=== PATIENT | male | born 1940 | race Caucasian/White ===

== ENCOUNTER 2018-01-16 11:01 | Day surgery (SDC) | payer OTHER ==
[~2018-01-16] VITALS: Ht 165.1 cm; Wt 91.4 kg
[~2018-01-16 11:01] MED LIST: ALBU90OI; ALBU90OI INH; ALBU90OI6 INH; ALLO100 PO; AMLO5 PO; ASPI81EC PO; BENA20; BENA20 PO; BUDE6HFA PO; CENTRUM SILVER1 EAC2; CHOL10002 PO; CITA20 PO; CLARITIN10 MG; CODGUAEL PO; COLCRYS0.6 MG PO; Cinnamon500 MG; DULERA INH; FLUO60T; FLUTICASONE P15.8 ML; FURO20 PO; GLIP5 PO; GUAI120S1 PO; HYDACE5 PO; Ipratr-Albuterol3 ML INH; LEVO750 PO; LORA10 PO; MULVITMINF PO; NASACORT10.8 ML; NIFE60ER PO; PANT40 PO; Prednisone20 MG PO; SALM50IP IH; SIMV10 PO; UBID100 PO; Zithromax250 MG PO
[2018-01-16] MEDS ORDERED: ALBU3IS INH (12:18)
== END 2018-01-16 13:58 | disposition home or self-care (01) ==
LOC: ORSCSDS 11:01
PROVIDERS: Internal Medicine Gastroenterology
PROC: 0DBM8ZX Excision of Descending Colon, Via Natural or Artificial Opening Endoscopic, Diagnostic (ICD-10-PCS; principal; 2018-01-16 12:45)
PROC: 0DBN8ZX Excision of Sigmoid Colon, Via Natural or Artificial Opening Endoscopic, Diagnostic (ICD-10-PCS; principal; 2018-01-16 12:45)
PROC: 0DB58ZX Excision of Esophagus, Via Natural or Artificial Opening Endoscopic, Diagnostic (ICD-10-PCS; principal; 2018-01-16 12:45)
DX: K22.70 Barrett's esophagus without dysplasia (principal); D12.4 Benign neoplasm of descending colon; D12.5 Benign neoplasm of sigmoid colon; K57.30 Diverticulosis of large intestine without perforation or abscess without bleeding; K44.9 Diaphragmatic hernia without obstruction or gangrene; F17.210 Nicotine dependence, cigarettes, uncomplicated; I10 Essential (primary) hypertension; J44.9 Chronic obstructive pulmonary disease, unspecified; E11.9 Type 2 diabetes mellitus without complications; Z99.81 Dependence on supplemental oxygen; Z86.010 Personal history of colon polyps; E66.9 Obesity, unspecified; Z68.36 Body mass index [BMI] 36.0-36.9, adult; Z79.82 Long term (current) use of aspirin; Z79.899 Other long term (current) drug therapy
CPT/HCPCS: 82947; 88305; J7120

== ENCOUNTER → 2019-05-23 | Outpatient (CLI) | payer MEDICARE ==
[~2019-05-23] MED LIST changes: +ALBU3IS INH
[2019-05-23 14:10] LABS: BASOPHILS ABSOLUTE AUTO 0.04 K/mm3 (0.00-0.23); BASOPHILS PERCENT AUTO 1 % (0-2); EOSINOPHILS ABSOLUTE AUTO 0.08 K/mm3 (0.00-0.68); EOSINOPHILS PERCENT AUTO 1 % (0-6); Hematocrit 45.3 % (37.0-53.0); Hemoglobin 15.3 g/dL (13.5-17.5); IMMATURE GRAN ABSOLUTE AUTO 0.02 K/mm3 (0.00-0.10); IMMATURE GRAN PERCENT AUTO 0 % (0-1); LYMPHOCYTES ABSOLUTE AUTO 2.16 K/mm3 (0.84-5.20); LYMPHOCYTES PERCENT AUTO 36 % (21-46); MONOCYTES ABSOLUTE AUTO 0.61 K/mm3 (0.16-1.47); MONOCYTES PERCENT AUTO 10 % (4-13); Mean Corpuscular HGB 31.2 pg (26.0-34.0); Mean Corpuscular HGB Conc 33.8 g/dL (31.5-36.5); Mean Corpuscular Volume 92 fL (80-100); Mean Platelet Volume 10.4 fL (9.1-12.4); NEUTROPHILS ABSOLUTE AUTO 3.17 K/mm3 (1.96-9.15); NEUTROPHILS PERCENT AUTO 52 % (41-73); Platelet Count 218 K/mm3 (150-400); RDW Coefficient Variation 14.1 % (11.7-14.2); Red Blood Cell Count 4.91 M/mm3 (4.30-5.90); White Blood Cell Count 6.08 K/mm3 (4.00-11.30)
[2019-05-23 14:16] LABS: Bun/Creatinine Ratio 15.2 (12.0-20.0); Calcium, Blood 8.6 mg/dL (8.5-10.1); Creatinine, Blood 1.71 mg/dL (0.60-1.20); Potassium, Blood 3.7 mmol/L (3.5-5.5)
== END | disposition home or self-care (01) ==
LOC: LAB EV 14:04 → LAB SHORT 14:04
PROVIDERS: Physician Assistant Surgical
DX: J18.0 Bronchopneumonia, unspecified organism (principal)
CPT/HCPCS: 80048; 85025

== ENCOUNTER → 2019-05-24 | Outpatient (CLI) | payer MEDICARE ==
[2019-05-24 12:26] LABS: BASOPHILS ABSOLUTE AUTO 0.04 K/mm3 (0.00-0.23); BASOPHILS PERCENT AUTO 1 % (0-2); EOSINOPHILS ABSOLUTE AUTO 0.11 K/mm3 (0.00-0.68); EOSINOPHILS PERCENT AUTO 2 % (0-6); Hematocrit 43.4 % (37.0-53.0); Hemoglobin 14.5 g/dL (13.5-17.5); IMMATURE GRAN ABSOLUTE AUTO 0.02 K/mm3 (0.00-0.10); IMMATURE GRAN PERCENT AUTO 0 % (0-1); LYMPHOCYTES ABSOLUTE AUTO 1.79 K/mm3 (0.84-5.20); LYMPHOCYTES PERCENT AUTO 26 % (21-46); MONOCYTES PERCENT AUTO 7 % (4-13); Mean Corpuscular HGB 31.1 pg (26.0-34.0); Mean Corpuscular HGB Conc 33.4 g/dL (31.5-36.5); Mean Corpuscular Volume 93 fL (80-100); Mean Platelet Volume 10.4 fL (9.1-12.4); NEUTROPHILS ABSOLUTE AUTO 4.43 K/mm3 (1.96-9.15); NEUTROPHILS PERCENT AUTO 64 % (41-73); Platelet Count 214 K/mm3 (150-400); RDW Standard Deviation 47.8 fL (35.1-46.3); Red Blood Cell Count 4.66 M/mm3 (4.30-5.90); White Blood Cell Count 6.89 K/mm3 (4.00-11.30)
[2019-05-24 12:30] LABS: Bun/Creatinine Ratio 14.1 (12.0-20.0); Calcium, Blood 8.6 mg/dL (8.5-10.1); Creatinine, Blood 1.77 mg/dL (0.60-1.20); Potassium, Blood 3.7 mmol/L (3.5-5.5)
== END | disposition home or self-care (01) ==
LOC: LAB SHORT 12:20 → LAB EV 12:20
PROVIDERS: Physician Assistant Surgical
DX: J18.0 Bronchopneumonia, unspecified organism (principal)
CPT/HCPCS: 80048; 85025

== ENCOUNTER → 2021-04-27 | Outpatient (CLI) | payer OTHER ==
[~2021-04-27] MED LIST changes: +ASPI81CH PO; +ATOR20 PO; +BUDE6HFA INH; +CENTRUM SILVER1 EAC2 PO; +CHLO25B PO; +COLCRYS0.6 M1 PO; +COMBIVENT RESPIM4 GM NEB; +COQ-10100 MG PO; +ENOX40I SC; +FURO40 PO; +INSULANPEN SC; +METO25ER PO; +MOME.1TO TOP; +OXYC5 PO; +PANTOPRAZOLE SO40 M1 PO; +PROM25 PO; +SULTRIDS PO; +VITAMIN D350 MCG PO
== END | disposition home or self-care (01) ==
LOC: LAB SHORT 14:40
DX: C44.629 Squamous cell carcinoma of skin of left upper limb, including shoulder (principal)
CPT/HCPCS: 88305

== ENCOUNTER → 2021-05-19 | Outpatient (CLI) | payer OTHER | LOC: LAB 11:21 → LAB SHORT 11:21 | DX: C44.622 Squamous cell carcinoma of skin of right upper limb, including shoulder (principal); L57.0 Actinic keratosis; Z88.8 Allergy status to other drugs, medicaments and biological substances | CPT/HCPCS: 88305 ==

== ENCOUNTER → 2021-07-19 | Outpatient (CLI) | payer OTHER ==
[2021-07-20 10:32] LABS: Stool Occult Bld Immuno 1 Negative (NEGATIVE)
== END | disposition home or self-care (01) ==
LOC: LAB SHORT 09:00
PROVIDERS: Family Medicine
DX: Z12.11 Encounter for screening for malignant neoplasm of colon (principal)
CPT/HCPCS: G0328

== ENCOUNTER → 2021-11-14 | Outpatient (CLI) | payer OTHER | END | disposition home or self-care (01) | LOC: PLD 07:54 → LAB 07:54 → LAB SHORT 07:54 | DX: L57.0 Actinic keratosis (principal) | CPT/HCPCS: 88305 ==

== ENCOUNTER → 2022-01-03 | Outpatient (CLI) | payer OTHER | END | disposition home or self-care (01) | LOC: LAB SHORT 08:00 → PLD 08:00 | DX: B35.3 Tinea pedis (principal) | CPT/HCPCS: 88305; 88312 ==

== ENCOUNTER → 2023-03-13 | Outpatient (CLI) | payer OTHER | LOC: LAB SHORT 07:55 → LAB 07:55 → PLD 07:55 | DX: D04.62 Carcinoma in situ of skin of left upper limb, including shoulder (principal) | CPT/HCPCS: 88305 ==

== ENCOUNTER 2024-05-03 15:12 | Observation (INO) | payer MEDICARE ==
[~2024-05-03] VITALS: Ht 160 cm; Wt 83.5 kg
[~2024-05-03 15:12] MED LIST changes: +ONDA4ODT MM; +OSEL75CA PO; +PRED20 PO
[2024-05-03 15:42] LABS: BASOPHILS ABSOLUTE AUTO 0.07 K/mm3 (0.00-0.23); BASOPHILS PERCENT AUTO 1 % (0-2); EOSINOPHILS ABSOLUTE AUTO 0.25 K/mm3 (0.00-0.68); EOSINOPHILS PERCENT AUTO 2 % (0-6); Hematocrit 47.2 % (37.0-53.0); Hemoglobin 15.7 g/dL (13.5-17.5); IMMATURE GRAN ABSOLUTE AUTO 0.04 K/mm3 (0.00-0.10); IMMATURE GRAN PERCENT AUTO 0 % (0-1); LYMPHOCYTES ABSOLUTE AUTO 2.75 K/mm3 (0.84-5.20); LYMPHOCYTES PERCENT AUTO 26 % (21-46); MONOCYTES ABSOLUTE AUTO 0.78 K/mm3 (0.16-1.47); MONOCYTES PERCENT AUTO 8 % (4-13); Mean Corpuscular HGB 31.3 pg (26.0-34.0); Mean Corpuscular HGB Conc 33.3 g/dL (31.5-36.5); Mean Corpuscular Volume 94 fL (80-100); Mean Platelet Volume 10.2 fL (9.1-12.4); NEUTROPHILS ABSOLUTE AUTO 6.52 K/mm3 (1.96-9.15); NEUTROPHILS PERCENT AUTO 63 % (41-73); Platelet Count 226 K/mm3 (150-400); RDW Coefficient Variation 13.5 % (11.7-14.2); RDW Standard Deviation 46.4 fL (35.1-46.3); Red Blood Cell Count 5.01 M/mm3 (4.30-5.90); White Blood Cell Count 10.41 K/mm3 (4.00-11.30)
[2024-05-03 15:58] LABS: Albumin, Blood 3.6 g/dL (3.4-5.0); Bilirubin, Total 0.6 mg/dL (0.1-1.0); Bun/Creatinine Ratio 16.6 (12.0-20.0); Calcium, Blood 8.9 mg/dL (8.5-10.1); Creatinine, Blood 1.87 mg/dL (0.60-1.20); Globulin, Blood 3.6 g/dL (2.2-4.0); Potassium, Blood 4.8 mmol/L (3.5-5.5); Total Protein, Blood 7.2 g/dL (6.4-8.2)
[2024-05-03] MEDS ORDERED: Aspirin 325 MG Tab PO ONE (16:25)
[2024-05-03] MEDS ORDERED: Ondansetron HCl 2 MG / ML 2ML Vial IV PRN (17:50)
[2024-05-03] MEDS ORDERED: Acetaminophen 325 MG TABLET PO PRN (17:50)
[2024-05-03] MEDS ORDERED: FLU VACC TS2024-25(6MOS UP)/PF 45 MCG/0.5 ML SYRINGE IM ONE (17:50)
[2024-05-03] MEDS ORDERED: OxyCODONE HCL 5 MG TAB PO PRN (17:50)
[2024-05-03] MEDS ORDERED: Ondansetron 4 MG TAB PO PRN (17:50)
[2024-05-03] MEDS ORDERED: Temazepam 15 MG Cap PO PRN (17:50)
[2024-05-03] MEDS ORDERED: Ipratropium/Albuterol SulF 2.5-0.5MG/3 ML Amp INH PRN (17:55)
[2024-05-03] MEDS ORDERED: LOSA25 PO (20:01)
[2024-05-03] MEDS ORDERED: FARXIGA10 MG PO (20:06)
[2024-05-03] MEDS ORDERED: INSULANPEN SC (20:07)
[2024-05-03 20:45] VITALS: BP 167/75
[2024-05-03] MEDS ORDERED: Mometasone/Formoterol MDI 200/5 mcg 13 GM INH SCH (20:50)
[2024-05-03] MEDS ORDERED: Albuterol HFA200 ACT/6.7 GM INH INH PRN (20:50)
[2024-05-03] MEDS ORDERED: Insulin Human Lispro 100 Units/ML 3ML Syringe SC SCH (21:00)
[2024-05-03] MEDS ORDERED: Insulin Glargine-Yfgn 100 Unit/mL 3 ML SYR SC SCH (21:00)
[2024-05-04 03:43] VITALS: BP 143/77
[2024-05-04 05:33] LABS: Anion Gap 8 mmol/L (3-11); Blood Urea Nitrogen 37 mg/dL (8-24); Bun/Creatinine Ratio 19.1 (12.0-20.0); CHOL/HDL RATIO 3.2; CO2, Blood 29 mmol/L (21-32); Calcium, Blood 8.8 mg/dL (8.5-10.1); Chloride, Blood 105 mmol/L (98-108); Cholesterol 139 mg/dL (50-200); Creatinine, Blood 1.94 mg/dL (0.60-1.20); Glomerular Filtration Rate 33 (60-); Glucose, Blood 107 mg/dL (70-99); HDL Cholesterol 44 mg/dL (>39); LDL/HDL RATIO 1.5; Low Density Lipoprotein Chol 66 mg/dL (0-110); Potassium, Blood 4.4 mmol/L (3.5-5.5); Sodium, Blood 138 mmol/L (136-145); Triglycerides 144 mg/dL (30-160); Very Low Density Lipoprot Chol 28 mg/dL (6-32)
[2024-05-04] MEDS ORDERED: Pantoprazole Sodium 40 MG Tab PO SCH (06:00)
--- NOTE | 2024-05-04 06:46 | NUR ---
SHIFT SUMMARY NOC ADMIT FROM ED WITH POSSIBLE TIA WITH L SIDED NUMBNESS NOW RESOLVED AND ASYMPTOMATIC. A/O X 4. SLIGHTLY ELEVATED BP. INDEPEDENT AND CONTINENT, USING URINAL. ON TELE SINUS RHYTHM IN 80'S. PT HAS MRI AND ECHO SCHEDULED FOR TODAY. PT ON RA WHILE AWAKE BUT USES O2 2.5L/NC FOR SLEEP DUE TO MICHAEL, BUT CAN NOT TOLERATE CPAP. PT ALSO DM2 HS CBG 185, WITH CNI. PT HAS DEXCOM ON BACK OF RA. PT CURRENTLY RESTING WIT BED IN LOWEST POSITION, AND CALL LIGHT WITHIN REACH.
[2024-05-04 07:32] VITALS: BP 141/70
[2024-05-04] MEDS ORDERED: Cholecalciferol 1000 Unit Tablet (=25MCG) PO SCH (09:00)
[2024-05-04] MEDS ORDERED: Allopurinol 100 MG Tab PO SCH (09:00)
[2024-05-04] MEDS ORDERED: Insulin Glargine-Yfgn 100 Unit/mL 3 ML SYR SC SCH (09:00)
[2024-05-04] MEDS ORDERED: Multivitamins/Minerals 1 Tab PO SCH (09:00)
[2024-05-04] MEDS ORDERED: Aspirin 81 MG Chew PO SCH (09:00)
[2024-05-04] MEDS ORDERED: Atorvastatin 10 MG Tab PO SCH (09:00)
[2024-05-04] MEDS ORDERED: Enoxaparin 30 MG/0.3 ML SYR SC SCH (09:00)
--- NOTE | 2024-05-04 12:58 | NUR ---
PATIENT WALKS WITH PT IN HALLWAY. NADN. PATIENT MAKING EVEN STRIDES NO WALKER OR CANE. PT AT SIDE AMBULATES DOWN HALLWAY AND RETURNS TO ROOM. NOTIFIED AND HE COMES TO ROOM TO SEE PATIENT. PATIENT GIVEN CHOICE OF GOING HOME OR STAYING ONE MORE NIGHT. PATIENT WOULD PREFER TO GO HOME. MRI IS NOT AVAILABLE TO THIS PATIENT PER SCARIFIER OPERATOR PATIENT HAS PENILE IMPLANT AND EQUIPEMENT IN HOSPITAL NOT ABLE TO ACCOMODATE.
[2024-05-04] MEDS ORDERED: CLOP75 PO (15:26)
--- NOTE | 2024-05-04 16:37 | NUR ---
PATIENT DISCHARGED TO HOME. ALL QUESTIONS ADDRESSED. PLAVIX RX FAXED TO PHARMACY ([facility]) PER HIS REQUEST. FAMILY IS PRESENT AND TAKES HIM HOME. PATIENT AMBULATES TO BATHROOM WITHOIUT ASSIST PRIOR TO LEAVING ROOM. DENIES ANY DIZZYNESS OR WEAKNESS. HE IS AO X 4.
== END 2024-05-04 16:44 | disposition home or self-care (01) ==
LOC: ER 15:12 → MEDS 15:13 → ENPENDDIS 05-04 14:05 → MEDS 05-04 16:44
PROVIDERS: Physician Assistant; ADMIT Internal Medicine
DX: G45.9 Transient cerebral ischemic attack, unspecified (principal); I12.9 Hypertensive chronic kidney disease with stage 1 through stage 4 chronic kidney disease, or unspecified chronic kidney disease; E11.22 Type 2 diabetes mellitus with diabetic chronic kidney disease; N18.9 Chronic kidney disease, unspecified; E78.5 Hyperlipidemia, unspecified; J44.9 Chronic obstructive pulmonary disease, unspecified; G47.33 Obstructive sleep apnea (adult) (pediatric); H53.2 Diplopia; K21.9 Gastro-esophageal reflux disease without esophagitis; Z87.891 Personal history of nicotine dependence; Z79.82 Long term (current) use of aspirin; Z79.84 Long term (current) use of oral hypoglycemic drugs; Z79.4 Long term (current) use of insulin; Z79.899 Other long term (current) drug therapy; Z88.8 Allergy status to other drugs, medicaments and biological substances
CPT/HCPCS: 36415; 70450; 70498; 71045; 80048; 80053; 80061; 82947; 83036; 85025; 93005; 93010; 93306; 94640; 94664; 94760; 96372; 97161; 99285-25; A9270; G0378; J1650; J1815; Q9967